=== PATIENT | female | born 1985 | race Caucasian/White ===

== ENCOUNTER → 2019-06-18 | Outpatient (CLI) | payer OTHER ==
[~2019-06-18] MED LIST: CODE1TAB37 PO
== END | disposition home or self-care (01) ==
LOC: PRENATAL 15:00
DX: O99.212 Obesity complicating pregnancy, second trimester (principal); O34.211 Maternal care for low transverse scar from previous cesarean delivery; O35.3XX0 Maternal care for (suspected) damage to fetus from viral disease in mother, not applicable or unspecified

== ENCOUNTER 2019-10-04 11:09 | Inpatient (IN) | payer OTHER ==
[~2019-10-04] VITALS: Ht 165.1 cm; Wt 2.3 kg
[2019-10-04] MEDS ORDERED: ASPIR 8181 MG PO (18:57)
[2019-10-04] MEDS ORDERED: PRENATABS RX T1 EACH PO (18:57)
[2019-10-07] MEDS ORDERED: CODE1TAB37 PO (08:34)
[2019-10-07] MEDS ORDERED: NAPROXEN500 MG PO (08:35)
== END 2019-10-07 12:58 | disposition home or self-care (01) | DRG 785 ==
LOC: LDR 17:02 → OB/GYN 17:02
PROVIDERS: ADMIT Obstetrics & Gynecology
PROC: 0UL70ZZ Occlusion of Bilateral Fallopian Tubes, Open Approach (ICD-10-PCS; 2019-10-04)
PROC: 4A1HXCZ Monitoring of Products of Conception, Cardiac Rate, External Approach (ICD-10-PCS; 2019-10-04)
PROC: 10D00Z1 Extraction of Products of Conception, Low, Open Approach (ICD-10-PCS; principal; 2019-10-04 19:15)
DX: O82 Encounter for cesarean delivery without indication (principal); O14.04 Mild to moderate pre-eclampsia, complicating childbirth; Z3A.36 36 weeks gestation of pregnancy; Z37.0 Single live birth; Z30.2 Encounter for sterilization